=== PATIENT | female | born 1995 | race Caucasian/White ===

== ENCOUNTER 2022-07-12 09:26 | Emergency (ER) | payer OTHER, SELFPAY ==
[2022-07-12 09:37] VITALS: BP 170/119; PULSE 98; RESP 18; TEMP 37.1; O2SAT 96
--- NOTE | 2022-07-12 11:31 | ED.HA ---
HPI - Headache General Time Seen by Provider: 11:31 Date Seen: 07/12/22 Chief Complaint: Headache/Migraine Stated Complaint: Lightheaded, nausea Time Seen by Provider: 07/12/22 11:05 Source: patient, RN notes reviewed and old records reviewed Mode of arrival: ambulatory Limitations: no limitations History of Present Illness HPI Narrative: Kanchan is a very pleasant 27-year-old female previously healthy who comes to the emergency room for headache persisting for 4 days. Patient notes that she has had tremendous amount of social stressors especially with the recent her father. She does tear up when speaking about this. She states that she is overwhelmed. On TuesdayJuly 09 she states she was driving and had the sudden onset of left anabaptist pain. This was associated with vertigo and stating that everything was spinning. She states she pulled over and that actually got better and as the pain was receded she felt like she was going to vomit. Since that time she has had no vomiting but has been nauseated and has had persistent headache rated a 7/10. The nature of the headache has changed somewhat in and that today it is actually her entire head. She notes that she was quite exhausted over the last 48 hours and was but in bed quite a bit. She denies a sore throat or runny nose. She does note that the left side of her neck is been bothering lately and she has had day care director for that in the past but nothing recently. She notes no numbness or tingling on the body. She notes no visual changes since that initial vertigo on onset day 72 hours ago. She notes she did have a temp of 99.5? at home today. She notes that she feels cold but has not had any fever. She has not had any diarrhea. No recurrence of the vertigo. Patient does not have a past history of migraines nor family history. She has not had any recent head trauma. She is fully vaccinated and denies any COVID symptoms. Related Data Allergies Allergy/AdvReac Type Severity Reaction Status Date / Time No Known Drug Allergies Allergy Verified 07/12/22 09:41 Review of Systems Status of ROS: Reports: 10 or more systems reviewed and unremarkable except as noted in History and below Narrative: Denies as she is currently on her. Eyes: Denies: blurry vision ENMT: Denies: throat pain or difficulty swallowing Cardio: Denies: chest pain, palpitations, swelling of feet/ankles or shortness of breath with exertion Resp: Denies: shortness of breath or cough GI: Denies: abdominal pain, vomiting, diarrhea or difficulty swallowing : Denies: painful urination PFSH PFSH Social History Smoking Status: Never smoker Do you use any of these nicotine containing products: None Second hand tobacco smoke exposure: No How often do you have a drink containing alcohol: never How often do you have six or more drinks on one occasion: Never AUDIT-C Alcohol total score: 0 Non-prescribed substance use: denies use Exam Narrative: Exam Narrative: Kanchan is very sweet alert and oriented making good eye contact. She is frequently tearful when discussing the of her father which was just recent. EOM is full and pupils are equal round reactive to light. No significant photophobia. Head is atraumatic normocephalic. Neck is supple. No midline tenderness with palpation. Oral cavity with moist mucous membranes. Face is symmetrical. Heart with regular rate and rhythm Lungs are clear in all lung beltre abdomen soft nontender. Romberg is negative. Finger to nose negative. Able to move and be coordinated without difficulty. Hallpike maneuver negative on both left and right. Const: Vital Signs, click to edit/add: Vital Signs - 24 hr 07/12/22 09:37 07/12/22 14:44 Temperature 98.8 F Pulse Rate [Right Pulse Oximeter] 98 94 Respiratory Rate 18 18 Blood Pressure [Ri ght Upper Arm] 170/119 H 172/93 H Pulse Oximetry 96 99 Oxygen Delivery Me thod Room Air Room Air Documenting provider has reviewed patient's vital signs: yes Course Course Hospital Course: Patient has no past history of headache and this headache was sudden in its onset and was associated with some neck discomfort that has been chronic during her lifetime. We will use our migraine protocol to include Reglan 10 mg IV piggyback and Benadryl 50 mg as well as 1 L of normal saline. I did have the pleasure of speaking with , neurologist is regarding this particular onset of symptoms. I think we must include in the in the differential diagnosis vertebral artery dissection, head bleed aneurysmal leak. Because of this we will be getting MR of the head and neck with and without contrast Reevaluation(s) Reevaluation #1: Patient noted to have almost complete resolution of symptoms with our medications. He Vital Signs Vital signs: Initial Vital Signs Temperature 98.8 F 07/12/22 09:37 Temperature Source Temporal Artery Scan 07/12/22 09:37 Pulse Rate 98 07/12/22 09:37 Pulse Rhythm 07/12/22 09:37 Respiratory Rate 18 07/12/22 09:37 Blood Pressure 170/119 H 07/12/22 09:37 Blood Pressure Mean 136 07/12/22 09:37 Blood Pressure Position Sitting 07/12/22 09:37 Pulse Oximetry 96 07/12/22 09:37 Oxygen Delivery Method 07/12/22 09:37 Vital Signs Temperature 98.8 F 07/12/22 09:37 Pulse Rate 98 07/12/22 09:37 Respiratory Rate 18 07/12/22 09:37 Blood Pressure 170/119 H 07/12/22 09:37 Pulse Oximetry 96 07/12/22 09:37 Oxygen Delivery Method 07/12/22 09:37 Temperature 98.8 F 07/12/22 09:37 Pulse Rate 94 07/12/22 14:44 Respiratory Rate 18 07/12/22 14:44 Blood Pressure 172/93 H 07/12/22 14:44 Pulse Oximetry 99 07/12/22 14:44 Oxygen Delivery Method 07/12/22 14:44 MDM - Headache MDM Narrative Medical decision making narrative: 1. Migraine-patient noted to have resolution of symptoms with Reglan and Benadryl. Because she had no previous history and of the sudden onset of the symptoms we did have her undergo MR of brain and all of these studies are reassuring with no evidence of bleed, dissection. Patient had a follow-up appointment already scheduled with her primary later this week. I would like her to keep that appointment. I would like her to rest and push fluids. She herself states that she is going to ?make a change?. She states every time she is overwhelmed she ends up in the hospital. She certainly has a lot of stressors at this time. Her mother does arrive and is very loving and supportive. 2. Hypertension-Kanchan states that they are working on this with her primary. Her blood pressure did improve modestly while she was here. I do recommend she continue to follow-up for this and she has an appointment later this week. 3. Disposition-home with Mom. Return for worsening symptoms. Note for work today. Lab Data Attestation: I reviewed the patient's lab results. Labs: Lab Results 07/12/22 Range/Units 12:06 SARS-CoV-2 (PCR) Negative SARS-CoV-2 (Negative) Influenza Type A (PCR) Negative PCR FLU A (Negative) Influenza Type B (PCR) Negative PCR FLU B (Negative) Discharge Plan Discharge Clinical Impression: Migraine Patient Disposition: Home, Self-Care Condition: Improved Additional Instructions: Ibuprofen as needed. Rest and push fluids. Return to the ER as needed. Follow Up/Referrals: Provider,Not a Local [Referring] - Stand Alone Forms: [facility] [employer] Info Instructions
--- NOTE | 2022-07-12 11:37 | CRLHL7_ITS ---
For Patients: As a result of the Century Cures Act, medical imaging exams and procedure reports are released immediately into your electronic medical record. You may view this report before your referring provider. If you have questions, please contact your health care provider. INDICATION: Left-sided neck pain. Headache. TECHNIQUE: MRI brain: Multiplanar multisequence MR imaging acquired prior to and following intravenous contrast. MRA head: [id number] imaging acquired. MRA neck: [id number] and postcontrast imaging acquired. COMPARISON: None. FINDINGS: MRI brain: The ventricles and sulci are within normal limits for patient age. No mass effect or midline shift. Punctate FLAIR hyperintensity within the subcortical white matter of the left superior frontal gyrus (series 7, image 34), nonspecific though potentially related to migraine headaches or minimal chronic microvascular ischemic change. No diffusion restriction to suggest acute infarction. No intracranial hemorrhage or pathologic extra-axial fluid collection. No pathologic intracranial enhancement. The major arterial flow voids of the skullbase are preserved. The globes are symmetric. Small maxillary sinus retention cysts or polyps. Trace mastoid fluid bilaterally. MRA head: The visualized internal carotid, middle cerebral, and anterior cerebral arteries are widely patent. The vertebral, basilar, and posterior cerebral arteries are widely patent. No intracranial aneurysm or high-flow vascular malformation. MRA neck: The innominate and subclavian arteries are widely patent. The common carotid arteries are widely patent. The internal carotid arteries are widely patent. The left vertebral artery is dominant. The vertebral arteries are widely patent. IMPRESSION: 1. No acute intracranial abnormality. 2. Unremarkable MRA of the head and neck. Dictated by Jassi Neal MD @ 07/12/2022 2:38:48 PM (Electronically Signed)
[2022-07-12] MEDS: diphenhydrAMINE 50 MG/ML inj IVP (12:03)
[2022-07-12] MEDS: 0.9 % SODIUM CHLORIDE 1000 ml 1,000 ML IV (12:04)
[2022-07-12] MEDS: METOCLOPRAMIDE HCL 10 MG in 0.9 % SODIUM CHLORIDE 100 ml 100 ML 306 MG IVPB (12:10)
--- NOTE | 2022-07-12 12:20 | ED.NURSE ---
Reglan infusion stopped. Pt to MRI.
[2022-07-12 13:12] LABS: PCR FLU A Negative PCR FLU A (Negative); PCR FLU B Negative PCR FLU B (Negative)
[2022-07-12 13:13] LABS: SARS PCR* Negative SARS-CoV-2 (Negative)
--- NOTE | 2022-07-12 13:45 | ED.NURSE ---
Pt returned from MRI. Ambulatory to BR w/ steady gait.
[2022-07-12 14:44] VITALS: BP 172/93; PULSE 94; RESP 18; O2SAT 99
== END 2022-07-12 14:53 | disposition home or self-care (01) ==
PROVIDERS: Emergency Provider Family Medicine; PCP Nurse Practitioner Family
DX: G43.909 Migraine, unspecified, not intractable, without status migrainosus (principal); I10 Essential (primary) hypertension
CPT/HCPCS: 70544; 70549; 70553; 87631; 96365; 96367; 96375; 99284; A9575; J1200; J2765; J7030

== ENCOUNTER 2024-09-05 09:14 | Emergency (ER) | payer OTHER, SELFPAY ==
--- OUTSIDE RECORDS SUMMARY | 2024-09-05 09:16 | XMS_ITS | Clinical Summary ---
Author Organization [facility] Address [address] [place] [address] Care Team Providers Care Information Manager Name Role Phone Unassigned, Pcp Primary Care Provider Unavailabl e Source Comments Patient records contain information from all sites at [facility]. For routine questions regarding patient records, call [phone] during business hours, M-F 8:00 AM - 5:00 PM Central Time. Record requests for emergency care only can be directed to [phone] at any time.[facility] Allergies No known active allergies Medications * This document contains information received from the source organization and may not represent a complete record from that organization. hydrOXYzine (ATARAX) 25 mg tablet Take 2 tabs daily as needed for anxiety 1 Active loratadine (CLARITIN) 10 mg tablet Take 1 tablet by mouth daily. 7 Active lisinopriL (PRINIVIL,ZESTR IL) 5 mg tablet Take 5 mg by mouth. 1 Active hydroCHLOROthia zide (HYDRODIURIL) 25 mg tablet Take 25 mg by mouth. 1 Active fluticasone propionate (FLONASE) 50 mcg/actuation nasal spray Administer 1 spray into nostril(s). 7 Active buPROPion XL (WELLBUTRIN XL) 300 mg 24 hr tablet Take 300 mg by mouth. 1 Active venlafaxine XR (EFFEXOR-XR) 75 mg 24 hr capsule Take 75 mg by mouth. 1 Active ferrous sulfate 325 mg (65 mg iron) DR tabletIndicatio ns:Anemia Take 1 tablet (65 mg of iron total) by mouth 2 (two) times a day. 180 tablet 3 1 Active levonorgestrel- ethinyl estradiol (SEASONALE) 0.15-mg-30 mcg per tabletIndicatio ns:Abnormal Uterine And Vaginal Bleeding Unspecified Take 1 tablet by mouth daily. 91 tablet 7 1 Active naproxen (EC NAPROSYN) 375 mg EC tabletIndicatio ns:Menorrhagia, Dysmenorrhea Take 1 tablet (375 mg total) by mouth 2 (two) times a day with meals. Use as scheduled during menstruation 60 tablet 2 1 Active losartan (COZAAR) 25 mg tablet 2 Active Active Problems Problem Noted Date Diagnosed Date Menorrhagia 02/18/2021 Dysmenorrhea 02/18/2021 Bleeding Dysfunctional Uterine 02/18/2021 Overview (02/18/2021): Reviewed pelvic ultrasound results indicating normal findings with the exception of a thickened and inhomogeneous endometrium. Small endometrial polyp could not be excluded. Discussed options for further identifying in treating possible endometrial polyp. She is most interested in proceeding with the hysteroscopic dilation and curettage and possible polypectomy for further evaluation of her endometrial tissue, as well as treatment simultaneously. She is agreeable to proceeding with surgical consultation to further discuss this option and schedule if appropriate. 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 Major Depressive Disorder, Recurrent, Unspecifie d 05/10/2017 Anemia 01/15/2015 Anxiety 01/15/2015 Obesity Unspecified 12/14/2013 Hypertension 10/20/2009 Overview (11/16/2016): Hypertension Otitis Media NOS 10/20/2009 Immunizations Immunization Administration Dates Next Due 9vHPV 10/24/2015,04/02/2015,01/28/2015 DTaP (Infanrix, [employer]) 09/29/1999,,1994,1994, 1994 HepB Pediatric/Adolescent 1994,1994, 1994 Hib (PRP-OMP) (PedvaxHIB) 06/29/1995,1994, 1994,1994 IPV 09/29/1999 Influenza TIV (IM) 04/24/2007 Influenza, Seasonal, Injectable 04/24/2007 Influenza, Unspecified 04/24/2007 MCV4 (Menactra)(Discontinued) 02/06/2007 MCV4 (Menveo) 01/28/2015 MMR 09/29/1999,06/29/1995 OPV 09/29/1999,09/08/1995,1994 ,1994 Tdap 02/06/2007 RODNEY 09/08/1995 Family History Medical History Relation Name Comments Cancer Father leg Lung cancer Father (was a atomic welder) Throat cancer Father Stroke Maternal Grandfather Pacemaker catheter, device Maternal Grandmother Heart attack Mother Hysterectomy Mother polyps Ovarian cysts Mother Colon cancer Paternal Grandfather Kidney cancer Paternal Grandmother Relation Name Status Comments Father Alive Maternal Grandfather Maternal Grandmother Alive Mother Alive Paternal Grandfather Paternal Grandmother Social History Tobacco Use Types Packs/Day Years Used Date Smoking Tobacco: Never Smokeless Tobacco: Never Alcohol Use Standard Drinks/Week Comments Never 0 (1 standard drink = 0.6 oz pur e alcohol) [facility] Answer Date Recorded In the past 12 months has e electric, gas, oil, or water [employer] threatened to shut off services in your home? No 10/06/2023 PHQ-2 Answer Date Recorded PHQ-2 Score 2 03/30/2021 Exercise Vital Sign Answer Date Recorde d On average, how many days pe r week do you engage in moderate to strenuous exercise (like a brisk walk)? Patient declined On average, how many minutes do you engage in exercise at this level? Patient declined 10/06/2023 Hunger Vital Sign Answer Date Recorded Within the past 12 months, y ou worried that your food would run out before you got the money to buy more. Never true 10/06/19 24 Within the past 12 months, t he food you bought just didn't last and you didn't have money to get more. Never true 10/06/2023 PRAPARE - Transportation Answer Date Re corded In the past 12 months, has l ack of transportation kept you from medical appointments or from getting medications? No 09/25 In the past 12 months, has l ack of transportation kept you from meetings, work, or from getting things needed for daily living? No 10/06/2023 Depression Answer Date Recor ded PHQ-9 Total Score (max 27) 9 03/30 Nutrition Answer Date Recorded On average, how many serving s of fruits and vegetables do you eat per day (serving size is equal to 1 cup or approximately the size of a tennis ball)? 0-2 10/06/2023 Dental Answer Date Recorded Dental: Regular Dentist No 10/06/19 24 Employment Answer Date Recorded Employment status Employed and actively working without restrictions 10/06/2023 Housing Stability Answer Date Recorded What is your living situation today? 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 Gender Identity Not on file Sexual Orientation Not on file Occupation Industry Job Start Date Job End Date Not on file Not on file Not on file Not on file Last Filed Vital Signs Vital Sign Reading Time Taken Comments Blood Pressure 148/84 10/12/2021 3:22 PM CDT Pulse 86 03/30/2021 2:25 PM CDT Temperature 37.1 C (98.8 F) 04/22/2021 9:19 AM CDT Respiratory Rate - - Oxygen Saturation 98% 03/30/2021 2:25 PM CDT Inhaled Oxygen Concentration - - Weight 134 kg (296 lb 3 oz) 10/12/2021 3:22 PM C DT Height 165 cm (5' 4.96) 03/30/2021 2:25 PM CDT Body Mass Index 49.35 03/30/2021 2:25 PM CDT Plan of Treatment Health Maintenance Due Date Last Done Comments Depression Monitoring (PHQ-9) 1994 HIV Screening 1994 Hepatitis C Screening 1994 Office Visit for Blood Pressure Check / Re-check 1994 DTaP,Tdap,and Td Vaccines (7 - Td or Tdap) 02/06/2017 02/06/2007, 09/29/1999, 09/08/1995, Additional history exists Creatinine Level (Kidney Function Test) 10/01/2022 10/01/2021 Potassium Level 10/01/2022 10/01/2021 Sodium Level 10/01/2022 10/01/2021 Cervical/Vaginal Cancer Screening 03/18/2023 03/18/2020 (Performed elsewhere) COVID-19 Vaccine ( season) 2024 11/09/2021, 08/29/2020, 08/01/2020 Influenza Vaccine (#1) 2024 7, 04/24/2007, 04/24/2007 Depression Monitoring (PHQ-9 for quality tracking) 06/27/2024 Hepatitis B Vaccines Completed 1994, 1994, 1994 IPV Vaccines Completed 09/29/1999, 09/1999, 09/08/1995, Additional history exists HPV Vaccines Completed 10/24/2015, 12/2014, 01/28/2015 Pneumococcal vaccine (0-49 years) Aged Out No longer eligible based on patient's age to complete this topic Insurance [employer] Care Teams Information Manager Relationship Specialty Start Date End Date Unassigned, Pcp PCP - General Family Medicine 03/30/21
--- OUTSIDE RECORDS SUMMARY | 2024-09-05 09:16 | XMS_ITS | Clinical Summary ---
Author Organization [facility] Address [address] [place] [id number] Care Team Providers Care Broadcast Journalist Name Role Phone ChacortaKamleshYanna NP Primary Care Provider [phone] Allergies No known active allergies Medications ferrous sulfate 325 mg delayed release tabletIndicatio ns:Anemia, unspecified anemia type Take 1 tablet by mouth 2 times daily with meals. 0 01/16/20 15 Active naproxen (EC-Naprosyn) 375 mg tabletIndicatio ns:pain Take 375 mg by mouth 2 times daily with meals. Use as scheduled during menstruation Active gabapentin (NEURONTIN) 300 mg capsuleIndicati ons:Chronic midline thoracic back pain Take 1 Capsule (300 mg) by mouth at bedtime. 10/17/19 24 Active losartan (COZAAR) 25 mg tabletIndicatio ns:HTN (hypertension) Take 1 tab daily for 2 weeks then increase to 2 tabs daily. 90 Tablet 08/31/19 25 Active hydrOXYzine pamoate (VISTARIL) 25 mg capsuleIndicati ons:Anxiety Take 1 Capsule (25 mg) by mouth 3 times daily if needed for Anxiety. 90 Capsule 08/31/19 25 Active venlafaxine (EFFEXOR XR) 75 mg cp24 Extended-Releas e capsuleIndicati ons:Anxiety,Dep ression, recurrent Take 1 Capsule (75 mg) by mouth once daily with a meal. 90 Capsule 08/31/19 25 Active gabapentin (NEURONTIN) 100 mg capsuleIndicati ons:Anxiety disorder, unspecified type Take 1 Capsule (100 mg) by mouth two times daily. Morning and afternoon 60 Capsule 1 08/31/19 25 Active loratadine (Claritin) 10 mg tabletIndicatio ns:Seasonal allergic rhinitis due to other allergic trigger,Otalgia of both ears Take 1 Tablet (10 mg) by mouth once daily. 90 tablet. 2 03/19/20 21 025 Discontin ued(*Kathryn ent states no longer taking) losartan (COZAAR) 100 mg tabletIndicatio ns:HTN (hypertension) Take 1 Tablet (100 mg) by mouth once daily. 90 Tablet 1 11/20/19 23 025 Discontin ued(*Med complete/ Regimen complete/ Level of care change) hydroCHLOROthia zide (HCTZ) 25 mg tabletIndicatio ns:HTN (hypertension) Take 1 Tablet (25 mg) by mouth once daily. every morning 90 Tablet 3 11/20/19 23 025 Discontin ued(Reord er (E-cancel not sent)) omeprazole (PRILOSEC) 20 mg Delayed-Release capsuleIndicati ons:Chronic GERD Take 1 Capsule (20 mg) by mouth once daily before a meal. 30 Capsule 11/20/19 23 025 Discontin ued(*Med complete/ Regimen complete/ Level of care change) hydrOXYzine pamoate (VISTARIL) 50 mg capsuleIndicati ons:Current severe episode of major depressive disorder without psychotic features without prior episode (HC),Anxiety disorder, unspecified type Take 1-2 Capsules (50-100 mg) by mouth every 6 hours if needed for Anxiety. 240 Capsule 1 09/09/19 24 025 Discontin ued(*Med complete/ Regimen complete/ Level of care change) gabapentin (NEURONTIN) 100 mg capsuleIndicati ons:Anxiety disorder, unspecified type Take 1 Capsule (100 mg) by mouth two times daily. Morning and afternoon 60 Capsule 1 10/17/19 24 025 Discontin ued(Reord er (E-cancel not sent)) mirtazapine (REMERON) 30 mg tabletIndicatio ns:Current severe episode of major depressive disorder without psychotic features without prior episode (HC) Take 1 Tablet (30 mg) by mouth at bedtime. 30 Tablet 1 10/17/19 24 025 Discontin ued(*Med complete/ Regimen complete/ Level of care change) venlafaxine (Effexor XR) 75 mg cp24 Extended-Releas e capsuleIndicati ons:Current severe episode of major depressive disorder without psychotic features without prior episode (HC),Anxiety disorder, unspecified type Take 3 Capsules (225 mg) by mouth once daily in the morning. 90 Capsule 5 12/09/19 24 025 Discontin ued(*Med complete/ Regimen complete/ Level of care change) hydroCHLOROthia zide 25 mg tabletIndicatio ns:HTN (hypertension) Take 1 Tablet (25 mg) by mouth once daily. every morning 90 Tablet 3 08/31/19 25 025 Discontin ued(*Med complete/ Regimen complete/ Level of care change) Active Problems Problem Noted Date Diagnosed Date Current severe episode of ma lou depressive disorder without psychotic features without prior episode 08/31/2024 Pap smear for cervical cancer screening 07/15/19 24 Overview (07/15/2023): 06/2023 NIL/HPV negative Pap/HPV due in 5 years Eustachian tube dysfunction, left 07/01/2023 Discogenic lumbar pain 07/02/2022 Morbid obesity with BMI of 50.0-59.9, adult 02/25 Adrenal adenoma, left 02/05/2020 Depression, recurrent 05/10/2017 HTN (hypertension) 09/19/2015 Absolute anemia 01/15/2015 Anxiety 01/15/2015 Obesity 12/14/2013 Elevated blood pressure 12/14/2013 Contraception 12/14/2013 Resolved Problems Problem Noted Date Diagnosed Date Resolved Date Special screening examinatio n for other specified chlamydial diseases 02/07/2014 05/26/2015 Overview (10/17/2014): NEEDS screening-letter sent 12/2013, 09/2014 Encounters Date Type Department Care Team Description 09/04/2024 Nurse Triage [address] [address] Yanna Whatley NP Dizziness 08/30/2024 10:10 AM WARRANT SERVER Office Visit [address] [phone] Yanna Whatley NP Medication Management (Restart medication. ) 08/30/2024 Travel from Last 3 Months Immunizations Immunization Administration Dates Next Due COVID-19 vaccine (Moderna 100mcg/0.5mL) PF, MDV 08/29/2020,08/01/2020 DTaP 09/29/1999, 6,1994,07/21,1994 HIB PRP-OMP (PedvaxHIB) 06/29/1995,09/14,1994,05/04 HPV 9 (Gardasil 9) 10/24/2015,04/02/2015, 015 Hepatitis B (Peds) 1994,1994, 994 Inactivated Polio Vaccine 09/29/1999 Influenza Virus, Unspecified 04/24/2007 Influenza, IIV3 (Age >=3 years) 04/24/2007 MENINGOCOCCAL VACCINE 2 VIAL [id number] (MENVEO) 01/28/2015 MMR 09/29/1999,06/29/1995 Meningococcal Vaccine (Menactra) 02/06/2007 Oral Polio Vaccine 09/29/1999, 6,1994,05/04 Tdap 02/06/2007 Varicella Vaccine 09/08/1995 Family History Medical History Relation Name Comments Cancer Father throat Other cancer Father Sarcoma of the leg Stroke Maternal Grandfather Hypertension Maternal Grandmother Diabetes Maternal Uncle Heart Disease Mother Hypertension Mother Cancer Paternal Grandfather colon Cancer-colon Paternal Grandfather Cancer Paternal Grandmother Relation Name Status Comments Father Alive Maternal Grandfather Maternal Grandmother Maternal Uncle Mother Alive Paternal Grandfather Paternal Grandmother Social History Tobacco Use Types Packs/Day Years Used Date Smoking Tobacco: Never Passive Smoke Exposure: Yes Smokeless Tobacco: Never Tobacco Cessation:Counseling Given: Yes Comments:parents Alcohol Use Standard Drinks/Week Comments Not Currently 0 (1 standard drink = 0.6 oz pur e alcohol) ocasionally PHQ-2 Answer Date Recorded PHQ-2 TOTAL SCORE 3 12/09/2023 Social Connections Answer Date Recorded Do you often feel lonely or isolated from those around you? 0 12/09/2023 Financial Resource Strain Answer Date R ecorded Difficulty of Paying Living Expenses 3 12/09/2023 Difficulty of Paying Living Expenses Not on file 12/09/2023 Food Insecurity Answer Date Recorded Do you worry your food will run out before you are able to buy more? 1 12/09/2023 Transportation Needs Answer Date Record ed Does lack of transportation keep you from medica l appointments? 1 12/09/2023 Does lack of transportation keep you from work, meetings or getting things that you need? 1 12/09/2023 Housing Stability Answer Date Recorded What is your housing situation today? 1 12/09/2023 Interpersonal Safety Answer Date Record ed Are you being hit, kicked, p ushed or yelled at (see row info)? No 06/20/2023 Interpersonal Safety Abuse 12 - 18 Not on file 06/20/2023 Interpersonal Safety Ambulatory Vulnerability No t on file 06/20/2023 Utilities Answer Date Recorded Do you have trouble paying f or utilities (for example, heat, electricity, water, phone)? 1 12/09/2023 Comments No Sex and Gender Information Value Date Recorded Sex Assigned at Not on file Legal Sex Female 7:00 AM WARRANT SERVER Gender Identity Not on file Sexual Orientation Not on file Occupation Industry Job Start Date Job End Date Not on file Not on file Not on file Not on file Not on file Not on file Not on file Not on file Obstetrics History Para Term AB IAB SAB Ectopic Multiple Livin g Live Births 0 0 0 0 0 0 0 0 0 0 Last Filed Vital Signs Vital Sign Reading Time Taken Comments Blood Pressure 154/96 08/30/2024 10:13 AM WARRANT SERVER Pulse 64 08/30/2024 10:13 AM WARRANT SERVER Temperature 36.6 C (97.9 F) 07/01/2023 8:47 AM WARRANT SERVER Respiratory Rate 18 07/08/2023 10:2 8 AM WARRANT SERVER Oxygen Saturation 99% 09/09/2023 9:01 AM CDT Inhaled Oxygen Concentration - - Weight 145.2 kg (320 lb 3.2 oz) 025 10:13 AM WARRANT SERVER Height 165.5 cm (5' 5.16) 08/30/2024 1 0:13 AM WARRANT SERVER Body Mass Index 53.03 08/30/2024 10:13 AM WARRANT SERVER Plan of Treatment Upcoming Encounters Date Type Department Care Team (Late st Contact Info) Description 10/04/2024 8:00 AM CDT Office Visit [facility] [address] [place] [phone] Winsome Carson DO [address] [place] [address] 10/11/2024 9:30 AM CDT Office Visit [facility] [address] [place] [phone] Yanna Whatley NP [address] [facility], [place] [phone] Health Maintenance Due Date Last Done Comments HIV for age 15-65 2009 Hepatitis C screening for age 18-79 2012 Tetanus booster 02/06/2017 02/06/2007 COVID-19 vaccine series ( season) 2024 11/09/2021, 08/29/2020, 08/01/2020 Influenza Vaccine (#1) 2024 04/24/2007, 2006 Depression screening for age 12+ 12/08/2024 12/09/2023, 12/09/2023, 10/20/2023, Additional history exists BMI (ht and wt on same day) for age 18+ 08/30/2025 08/30/2024, 06/01/2024, 12/09/2023, Additional history exists Pap test for age 21-65 07/08/2028 , 07/08/2023, 03/18/2020, Additional history exists Tdap Completed 02/06/2007 Pneumococcal series for age 6-49 Aged Out No longer eligible based on patient's age to complete this topic Procedures Procedure Name Priority Date/Time Associated Diagnosis Comments HPV HIGH RISK Routine 07/08/2023 10:54 AM WARRANT SERVER Screening for malignant neoplasm of cervix from Last 3 Months or Most Recently Relevant to Health Maintenance Results * HPV HIGH RISK (07/08/2023 10:54 AM WARRANT SERVER) TYPE 16 Negative Negative 07/13/2023 1:50 PM WARRANT SERVER [facility] TYPE 18 Negative Negative 07/13/2023 1:50 PM WARRANT SERVER [facility] OTHER HIGH RISK TYPES Negative Negative 07/13/2023 1:50 PM WARRANT SERVER [facility] Other (Cervical) Non-Blood / Unknown 07/08/2023 10:54 AM WARRANT SERVER 07/11/2023 12:45 PM WARRANT SERVER Narrative [facility] - 07/13/2023 1:50 PM WARRANT SERVER HPV types 16, 18, 31, 33, 35, 39, 45, 51, 52, 56, 58, 59, 66 and 68 DNA were undetectable or below the pre-set threshold. Methodology: [employer] Ida 4800 HPV Test Yanna Whatley NP MICROBIOLOGY Final Result [facility] [address] [place] [address], from Last 3 Months or Most Recently Relevant to Health Maintenance Insurance [id number] [place] [id number] [facility] Advance Directives * Full Code (Latest Code Status on File) Date Activated Date Inactivated Comments 04/02/2021 11:09 AM 04/02/2021 4:55 PM Question Answer Comments Code Status Discussion: Not Discussed Care Teams Broadcast Journalist Relationship Specialty Start Date End Date Yanna Whatley NP [address] [place] [address] [place] [address] PCP - General Family Practice 05/03/17
[2024-09-05 09:33] VITALS: BP 135/96; PULSE 97; RESP 18; TEMP 35.7; O2SAT 98; BMI 52.4
--- NOTE | 2024-09-05 10:40 | CRLHL7_ITS ---
For Patients: As a result of the Century Cures Act, medical imaging exams and procedure reports are released immediately into your electronic medical record. You may view this report before your referring provider. If you have questions, please contact your health care provider. INDICATION: Headache COMPARISON: None TECHNIQUE: CT examination of the head was performed as axial sections without intravenous contrast. Images were obtained from the vertex of the skull through the skull base. Please note that all CT scans at this facility use dose modulation, iterative reconstruction, and/or weight-based dosing when appropriate to reduce radiation dose to as low as reasonably achievable. FINDINGS: The brain shows no sign of mass lesion, mass effect, hemorrhage, or edema. The ventricles and sulci are normal in appearance for the patient`s age. The visualized portions of the orbits are normal in appearance. The osseous structures are normal in their appearance with no sign of abnormality in the skull base or calvarium. IMPRESSION: Normal unenhanced head CT. Please note that all CT scans at this facility use dose modulation, iterative reconstruction, and/or weight-based dosing when appropriate to reduce radiation dose to as low as reasonably achievable. Dictated by Gilberto Meneses MD @ 09/05/2024 11:11:36 AM (Electronically Signed)
--- NOTE | 2024-09-05 10:41 | ED.GENADULT ---
HPI - General Adult General Chief complaint: Headache/Migraine Stated complaint: Rt body is tingling, multi-day headache Time Seen by Provider: 09/05/24 10:08 History of Present Illness HPI narrative: The patient is a 29 year white female who has a history of depression who recently started on Effexor, gabapentin for chronic back pain, and losartan For hypertension. She started the Effexor this weekend. She is concerned about the effect of these medicines together. She does have a history of migraines and has had a migraine since yesterday it has not really gone away. She does describe some occasional tingling in her right cheek and in her right arm. She reports a lot of stress. Reports a lot of anxiety and as well. No focal neurologic deficit, she has noticed no weakness, there is no been no motor deficit. There is been no trauma or injury. She is otherwise fairly healthy. She has an elevated BMI. Related Data Home Medications ?Medication ?Instructions ?Recorded ?Confirmed gabapentin 100 mg capsule 200 mg PO DAILY 09/05/24 09/05/24 losartan 25 mg tablet (Cozaar) 25 mg PO DAILY 09/05/24 09/05/24 venoflexcin 75 mg PO DAILY 09/05/24 09/05/24 Allergies Allergy/AdvReac Type Severity Reaction Status Date / Time No Known Drug Allergies Allergy Verified 09/05/24 09:40 Review of Systems Status of ROS: Reports: 6 or more systems reviewed and unremarkable except as noted in History and below [facility] Social History Smoking Status: Never smoker Do you use any of these nicotine containing products: None Second hand tobacco smoke exposure: No How often do you have a drink containing alcohol: never How often do you have six or more drinks on one occasion: Never AUDIT-C Alcohol total score: 0 Non-prescribed substance use: denies use Exam Narrative: Exam Narrative: Objective: Vital signs are within normal limits other than slightly elevated diastolic pressure Alert orient x3 No facial asymmetry Neck is supple Neurologic in upper extremities is normal for strength sensation. Her pulses regular Const: Vital Signs, click to edit/add: Vital Signs - 24 hr 09/05/24 09:33 Temperature 96.2 F L Pulse Rate [Pulse Oximeter] 97 Respiratory Rate 18 Blood Pressure [Le ft Upper Arm] 135/96 H Pulse Oximetry 98 Oxygen Delivery Me thod Room Air Course Vital Signs Vital signs: Initial Vital Signs Temperature 96.2 F L 09/05/24 09:33 Temperature Source Temporal Artery Scan 09/05/24 09:33 Pulse Rate 97 09/05/24 09:33 Respiratory Rate 18 09/05/24 09:33 Blood Pressure 135/96 H 09/05/24 09:33 Blood Pressure Mean 109 H 09/05/24 09:33 Blood Pressure Position Sitting 09/05/24 09:33 Pulse Oximetry 98 09/05/24 09:33 Oxygen Delivery Method Room Air 09/05/24 09:33 Vital Signs Temperature 96.2 F L 09/05/24 09:33 Pulse Rate 97 09/05/24 09:33 Respiratory Rate 18 09/05/24 09:33 Blood Pressure 135/96 H 09/05/24 09:33 Pulse Oximetry 98 09/05/24 09:33 Oxygen Delivery Method Room Air 09/05/24 09:33 Temperature 96.2 F L 09/05/24 09:33 Pulse Rate 97 09/05/24 09:33 Respiratory Rate 18 09/05/24 09:33 Blood Pressure 135/96 H 09/05/24 09:33 Pulse Oximetry 98 09/05/24 09:33 Oxygen Delivery Method Room Air 09/05/24 09:33 Medications Administered Medications: Discontinued Medications Generic Name Dose Route Start Last Admin Trade Name Freq PRN Reason Stop Dose Admin Diphenhydramine HCl 25 mg 09/05/24 10:40 09/05/24 10:58 Diphenhydramine 50 Mg/Ml Inj IVP 09/05/24 10:41 25 mg ONCE ONE Administration Sodium Chloride 1,000 mls @ 6,000 mls/hr 09/05/24 10:45 09/05/24 10:57 0.9 % Sodium Chloride 1000 Ml IV 09/05/24 10:54 6,000 mls/hr .Q10M ANSHU Administration Metoclopramide HCl 10 mg/ 102 mls @ 306 mls/hr 09/05/24 10:40 09/05/24 11:12 Sodium Chloride IV 09/05/24 10:41 Infused ONCE ONE Infusion Ketorolac Tromethamine 30 mg 09/05/24 10:40 09/05/24 10:57 Ketorolac 30 Mg/Ml Inj IVP 09/05/24 10:41 30 mg ONCE ONE Administration Medical Decision Making MDM Narrative Medical decision making narrative: 29-year-old white female with history of migraine headaches with a migraine, is concerned that it may be related to starting these medicines together. She recently started Effexor about 4 days ago. I think at this point I would hold the gabapentin, continue the losartan and if Effexor. Can update her regular doctor in the next few days. I think at this point will trying get her headache better as this seems like a typical migraine with exception she describes some occasional tingling in her right arm to me, no focal weakness. Sounds like it might be anxiety, but I would check a CT scan of her head for completeness. disposition pending response and CT findings. Discharge Plan Discharge Clinical Impression: Migraine, Depression Patient Disposition: Home w/ Parent or Adult Condition: Improved Additional Instructions: Light activity, fluids, hold off on the gabapentin least for a week and then can restart if we want to try that. Continue other medications. Light activity today fluids, Tylenol as needed, update regular doctor the next 2-3 days, return to ED as need Activity Level: Light activity Discharge Diet: Regular Prescriptions: No Action gabapentin 100 mg capsule 200 mg PO DAILY losartan [Cozaar] 25 mg tablet 25 mg PO DAILY venoflexcin 75 mg PO DAILY Follow Up/Referrals: Yanna Whatley CNP [Primary Care Provider] - Stand Alone Forms: [employer] Info Instructions
[2024-09-05] MEDS: 0.9 % SODIUM CHLORIDE 1000 ml 1,000 ML 6000 ML IV (10:57)
[2024-09-05] MEDS: METOCLOPRAMIDE HCL 10 MG in 0.9 % SODIUM CHLORIDE 100 ml 100 ML 306 MG IV (10:57)
[2024-09-05] MEDS: KETOROLAC 30 MG/ML inj IVP (10:57)
[2024-09-05] MEDS: diphenhydrAMINE 50 MG/ML inj 25 MG IVP (10:58)
== END 2024-09-05 12:12 | disposition home or self-care (01) ==
PROVIDERS: Emergency Provider Family Medicine; PCP Nurse Practitioner Family
DX: G43.909 Migraine, unspecified, not intractable, without status migrainosus (principal); F32.A Depression, unspecified
CPT/HCPCS: 70450; 96374; 96375; 99284; J1200; J1885; J2765; J7030

== ENCOUNTER 2024-09-15 10:17 | Emergency (ER) | payer OTHER, SELFPAY ==
--- OUTSIDE RECORDS SUMMARY | 2024-09-15 10:19 | XMS_ITS | Clinical Summary ---
Author Organization [facility] Address [address] [place] [address] Care Team Providers Care Cement Crusher Operator Name Role Phone ChacortaKamleshYanna NP Primary Care Provider Allergies No known active allergies Medications ferrous sulfate 325 mg delayed release tabletIndicatio ns:Anemia, unspecified anemia type Take 1 tablet by mouth 2 times daily with meals. 0 01/16/20 15 Active naproxen (EC-Naprosyn) 375 mg tabletIndicatio ns:pain Take 375 mg by mouth 2 times daily with meals. Use as scheduled during menstruation Active losartan (COZAAR) 25 mg tabletIndicatio ns:HTN [...] a meal. 90 Capsule 08/31/19 25 Active hydrOXYzine HCL 10 mg tabletIndicatio ns:Panic attack Take 1 tab daily if needed for anxiety 14 Tablet 09/12/19 25 Active loratadine (Claritin) 10 mg tabletIndicatio [...] complete/ Level of care change) gabapentin (NEURONTIN) 300 mg capsuleIndicati ons:Chronic midline thoracic back pain Take 1 Capsule (300 mg) by mouth at bedtime. 10/17/19 24 025 Discontin ued(*Med complete/ Regimen [...] and afternoon 60 Capsule 1 08/31/19 25 025 Discontin ued(*Med complete/ Regimen [...] Encounters Date Type Department Care Team Description 09/11/2024 8:10 AM CDT Office Visit [address] [place] [phone] Yanna Whatley NP Hospital F/U ([facility] 09/05- Numbness); Derm Problem (2 lumps ) 09/11/[address], [place] [phone] Yanna Whatley NP 09/11/2024 Travel 09/05/2024 Orders Only [facility] Scanner 1 scan: (1-Ord) [facility], CT HEAD/BRAIN WO CON, 09/05/2024 09/04/2024 Nurse Triage [address] [place] [address] Yanna Whatley NP Dizziness 08/30/2024 10:10 AM TRASH TRUCK DRIVER Office Visit [address] [place] [address] Yanna Whatley NP Medication Management (Restart medication. [...] on file Legal Sex Female 7:00 AM TRASH TRUCK DRIVER Gender Identity Not on file Sexual Orientation [...] Sign Reading Time Taken Comments Blood Pressure 164/96 09/11/2024 8:18 AM CDT Pulse 76 09/11/2024 8:09 AM CDT Temperature 36.6 C (97.9 F) 07/01/2023 8:47 AM TRASH TRUCK DRIVER Respiratory Rate 18 07/08/2023 10:28 AM TRASH TRUCK DRIVER Oxygen Saturation 99% 09/09/2023 9:01 AM CDT Inhaled Oxygen Concentration - - Weight 144.2 kg (318 lb) 09/11/2024 8:09 AM CDT Height 165.5 cm (5' 5.16) 08/30/2024 10:[address] Body Mass Index 52.66 08/30/2024 10:13 AM TRASH TRUCK DRIVER Plan of Treatment Upcoming Encounters Date Type Department Care Team (Late st Contact Info) Description 10/04/2024 8:00 AM CDT Office Visit [address] [phone] Winsome Carson DO [address] [place] [address] 10/11/2024 9:30 AM CDT Office Visit [address] [phone] Yanna Whatley NP [address] [place] [address] Health Maintenance Due Date Last Done Comments [...] Procedure Name Priority Date/Time Associated Diagnosis Comments SCAN-CT INTERPRETATION 12:00 AM CDT HPV HIGH RISK Routine 07/08/2023 10:54 AM TRASH TRUCK DRIVER Screening for malignant neoplasm of cervix from Last 3 Months or Most Recently Relevant to Health Maintenance Results * SCAN-CT INTERPRETATION (09/05/2024 12:00 AM CDT) Anatomical Region Laterality Modality Other us Scanner OTHER Final Result * HPV HIGH RISK (07/08/2023 10:54 AM TRASH TRUCK DRIVER) TYPE 16 Negative Negative 07/13/2023 1:50 PM TRASH TRUCK DRIVER [facility] TYPE 18 Negative Negative 07/13/2023 1:50 PM TRASH TRUCK DRIVER [facility] OTHER HIGH RISK TYPES Negative Negative 07/13/2023 1:50 PM TRASH TRUCK DRIVER [facility] Other (Cervical) Non-Blood / Unknown 07/08/2023 10:54 AM TRASH TRUCK DRIVER 07/11/2023 12:45 PM TRASH TRUCK DRIVER Narrative [facility] - 07/13/2023 1:50 PM TRASH TRUCK DRIVER HPV types 16, 18, 31, 33, 35, 39, 45, 51, 52, 56, 58, 59, 66 and 68 DNA were undetectable or below the pre-set threshold. Methodology: [employer] Ida 4800 HPV Test Yanna Whatley NP MICROBIOLOGY Final Result [facility] [address] [place] [address], from Last 3 Months or Most Recently Relevant to Health Maintenance Insurance [facility] [place] [id number] Advance Directives * Full Code (Latest Code Status on File) Date Activated Date Inactivated Comments 04/02/2021 11:09 AM 04/02/2021 4:55 PM Question Answer Comments Code Status Discussion: Not Discussed Care Teams Cement Crusher Operator Relationship Specialty Start Date End Date Yanna Whatley NP [address] [facility] [place] [address] PCP - General Family Practice 05/03/17
--- OUTSIDE RECORDS SUMMARY | 2024-09-15 10:19 | XMS_ITS | Clinical Summary ---
Author Organization [facility] Address [address] [place] [address] Care Team Providers Care Ferryboat Operator Cable Name Role Phone Unassigned, Pcp Primary Care Provider Unavailabl e Source Comments Patient records contain information from all sites at [facility]. For routine questions regarding patient records, call [phone] during business hours, M-F 8:00 AM - 5:00 PM Central Time. Record requests for emergency care only can be directed to [phone] at any time.[facility] Allergies No known active allergies Medications * [...] Father leg Lung cancer Father (was a welder metal fab) Throat cancer Father Stroke Maternal Grandfather Pacemaker [...] drink = 0.6 oz pur e alcohol) [facility] [employer] Answer Date Recorded In the past 12 months has e electric, gas, oil, or water [employer] threatened to shut off services in your [...] your living situation today? I have a [facility] place to live 10/06/2023 Comments No Sex and Gender Information Value Date Recorded Sex Assigned at Female 03/23/2021 12:48 PM CDT Legal Sex Female 4:25 AM MANAGER ZONE Gender Identity Not on file Sexual Orientation [...] complete this topic Insurance ALLEGIANCE Care Teams Ferryboat Operator Cable Relationship Specialty Start Date End Date Unassigned, Pcp PCP - General Family Medicine 03/30/21
[2024-09-15 10:22] VITALS: BP 166/97; PULSE 96; RESP 16; TEMP 37.1; O2SAT 96; BMI 54.1
--- NOTE | 2024-09-15 11:01 | ED_ITS ---
HPI - Abdominal Pain General Time Seen by Provider: 11:01 Date Seen: 09/15/24 Chief Complaint: Abdominal Pain Stated Complaint: abdominal pain, swelling Time Seen by Provider: 09/15/24 11:01 Source: patient and RN notes reviewed Mode of arrival: ambulatory Limitations: no limitations History of Present Illness HPI narrative: Kanchan is a very pleasant 29-year-old female with a history of migraines and anxiety who comes to the emergency room complaining of right sided abdominal swelling and discomfort. Kanchan states 1 week ago she noticed that the right side of her abdomen seemed to be swollen. She was seen on TuesdaySeptember 11 and they decided to wait and see where this discomfort went. Unfortunately it has become worse over the past week and she now is experiencing right lower quadrant pain as well. Initially mildly thought that perhaps she had some constipation and so she took a to collect tablet and did have a bowel movement but this did not seem to change the pain. She notes that she is nauseated but has not had any vomiting or fever. She denies any possibility of . It does not hurt when she urinates. She denies but is not on control. Patient does note that the pain radiates down the front of her right leg. Related Data Home Medications ?Medication ?Instructions ?Recorded ?Confirmed losartan 25 mg tablet (Cozaar) 25 mg PO DAILY 09/05/24 09/15/24 venoflexcin 75 mg PO DAILY 09/05/24 09/15/24 Allergies Allergy/AdvReac Type Severity Reaction Status Date / Time No Known Drug Allergies Allergy Verified 09/05/24 09:40 Review of Systems Status of ROS Reports: 10 or more systems reviewed and unremarkable except as noted in History and below Const Denies: fever or chills Eyes Denies: change in vision or eye discharge ENMT Denies: throat pain, neck pain or nasal congestion Cardio Denies: chest pain, swelling of feet/ankles or shortness of breath with exertion Resp Denies: shortness of breath or cough GI Reports: abdominal pain and nausea; Denies: vomiting, diarrhea or constipation Denies: painful urination, urinary frequency, urinary urgency or blood in urine Musculo Denies: neck pain Integ/Breast Denies: rash Neuro Denies: headache Psych Reports: anxiety PFSH PFSH Social History Smoking Status: Never smoker Do you use any of these nicotine containing products: None Second hand tobacco smoke exposure: No How often do you have a drink containing alcohol: never How often do you have six or more drinks on one occasion: Never AUDIT-C Alcohol total score: 0 Non-prescribed substance use: denies use Exam Narrative: Exam Narrative: Kanchan is a very pleasant well-spoken young woman in no acute distress. External ears eyes nose clear. Heart with regular rate and rhythm and lungs are clear bilaterally. Abdomen shows diffuse discomfort throughout but more pain in the right lower quadrant than elsewhere. I cannot appreciate any distinct swelling and I do not note any unusual rash at this time. Const: Vital Signs, click to edit/add: Vital Signs - 24 hr 09/15/24 10:22 09/15/24 14:07 Temperature 98.7 F Pulse Rate [Pulse Oximeter] 96 84 Respiratory Rate 16 16 Blood Pressure [Ri ght Upper Arm] 166/97 H 152/87 H Pulse Oximetry 96 98 Oxygen Delivery Me thod Room Air Room Air Documenting provider has reviewed patient's vital signs: yes Course Course ED Course: Differential diagnosis includes but is not limited to appendicitis, bowel obstruction, constipation, colitis, diverticulitis, muscular strain, ovarian pathology, ectopic . Will place IV and draw labs to include CBC, comprehensive panel, CRP. Will obtain urine urinalysis as well as hCG. Plan on abdominal CT with contrast. Reevaluation(s) Reevaluation #1: Patient noted to have negative test. She proceeded to CT and this was reassuring. Given her ongoing pain did ask for ultrasound consult. Per ultrasound report ovary looks normal but common bile duct is dilated. Consultations Consultation #1: I had the pleasure of speaking to her surgical consult Dr. Jang. Suggest MRCP with follow-up with primary for discussion of results. Vital Signs Vital signs: Initial Vital Signs Temperature 98.7 F 09/15/24 10:22 Temperature Source Temporal Artery Scan 09/15/24 10:22 Pulse Rate 96 09/15/24 10:22 Respiratory Rate 16 09/15/24 10:22 Blood Pressure 166/97 H 09/15/24 10:22 Blood Pressure Mean 120 H 09/15/24 10:22 Blood Pressure Position Sitting 09/15/24 10:22 Pulse Oximetry 96 09/15/24 10:22 Oxygen Delivery Method Room Air 09/15/24 10:22 Vital Signs Temperature 98.7 F 09/15/24 10:22 Pulse Rate 96 09/15/24 10:22 Respiratory Rate 16 09/15/24 10:22 Blood Pressure 166/97 H 09/15/24 10:22 Pulse Oximetry 96 09/15/24 10:22 Oxygen Delivery Method Room Air 09/15/24 10:22 Temperature 98.7 F 09/15/24 10:22 Pulse Rate 84 09/15/24 14:07 Respiratory Rate 16 09/15/24 14:07 Blood Pressure 152/87 H 09/15/24 14:07 Pulse Oximetry 98 09/15/24 14:07 Oxygen Delivery Method Room Air 09/15/24 14:07 MDM - Abdominal Pain MDM Narrative Medical decision making narrative: 1. Dilated common bile duct-no evidence of stones on CT or ultrasound. Well ultrasound identified common bile duct 0.8 cm, up to size 0.6 cm is normal for this age group. Therefore I have consulted with surgery and have ordered MRCP based on that conversation. No evidence of stone on ultrasound or CT. Kanchan's instructed to follow up with her primary MD after her MRCP is done. She will need to seek medical attention or return for fever, vomiting, worsening symptoms and as needed. 2. Abdominal pain-, use of laboratory values reassuring with normal white count electrolyte panel LFTs and CRP. No evidence of hematuria UTI. Or ovary appears normal with good flow. Ibuprofen or Tylenol as needed for discomfort. 3. Disposition-home at this time. Await phone call for scheduling of MRCP next week as we do not have that available over the weekend. Medical Records Attestation: I reviewed the patient's medical records. Lab Data Attestation: I reviewed the patient's lab results. Labs: Lab Results 09/15/24 09/15/24 Range/Units 11:38 12:30 WBC 9.17 (4.50-11.00) K/uL RBC 4.13 (4.00-5.20) m/uL Hgb 10.2 L (12.0-16.0) gm/dL Hct 32.1 L (33.0-51.0) % MCV 78 L (80-100) fL MCH 25 L (26-34) pg MCHC 32 (32-36) gm/dL RDW Coeff of Avelina 13.7 (11.5-15.5) % Plt Count 446 H (140-440) K/uL Neut % (Auto) 77.8 H (42.0-72.0) % Lymph % (Auto) 15.6 L (20-44) % [place] % (Auto) 5.7 (0.0-11.0) % Eos % (Auto) 0.3 (0.0-7.0) % Baso % (Auto) 0.5 (0.0-3.0) % Neut # (Auto) 7.10 H (1.7-7.0) K/uL Lymph # (Auto) 1.40 (0.90-2.90) K/uL [place] # (Auto) 0.50 (0.00-0.90) K/UL Eos # (Auto) 0.03 (0.00-0.50) K/uL Baso # (Auto) 0.05 (0.00-0.30) K/uL Abs Immat Gran (auto) 0.01 (0.00-0.30) K/uL Imm/Tot Granulo (auto) 0.1 % Sodium 138 (135-149) mmol/L Potassium 4.1 (3.6-5.1) mmol/L Chloride 101 (96-114) mmol/L Carbon Dioxide 28 (20-32) mmol/L Anion Gap 9 (7-15) mEq/L BUN 11 (5-24) mg/dL Creatinine 0.7 (0.5-1.5) mg/dL Estimated Creat Clear 101.48 Estimated GFR 119 ml/min Glucose 106 (60-115) mg/dL Lactate 0.8 (0.5-1.9) mmol/L Calcium 9.4 (8.4-10.6) mg/dL Total Bilirubin 0.4 (0.1-1.5) mg/dL AST 26 (12-35) U/L ALT 27 (4-35) U/L Alkaline Phosphatase 83 (40-150) U/L C-Reactive Protein 0.6 (0.5-1.0) mg/dL Total Protein 7.8 (6.0-8.3) g/dL Albumin 4.6 (3.3-5.0) g/dL Lipase 63 (23-300) U/L Urine Color Yellow (Yellow) Urine Appearance Clear (Clear) Urine pH 6.5 (5.0-8.5) Ur Specific [place] 1.010 (1.000-1.030) Urine Protein Negative (Negative) Urine Glucose (UA) Negative (Negative) Urine Ketones Negative (Negative) Urine Blood Negative (Negative) Urine Nitrite Negative (Negative) Urine Bilirubin Negative (Negative) Urine Urobilinogen 0.2 (0.2-1.0) Ur Leukocyte Esterase Negative (Negative) Urine RBC 0-2 (0-2) Urine WBC 0-2 (0-5) Ur Squamous Epith Cells Few (None-Few) Urine Bacteria None (None) Urine HCG, Qual Negative (Negative) Imaging Data CT scan - abdomen: Attestation: I have reviewed the pertinent imaging results. Radiologist's impression: Lower chest: Unremarkable. Liver: Normal in size and attenuation. No suspicious masses. Gallbladder and bile ducts: No stones or inflammation. No biliary dilatation. Pancreas: Unremarkable. No mass or inflammation. Spleen: Normal in size. No masses. Adrenal glands: Normal in size. No nodules. Kidneys: Normal in size. No suspicious masses, stones, or hydronephrosis. GI tract: Unremarkable. Normal in caliber. No sign of mass or inflammation. Normal appendix. Vasculature: Abdominal aorta is normal in caliber. Lymph nodes: No lymphadenopathy. Peritoneum/Abdominal Wall: Unremarkable. No sign of mass or infiltration. No free air or significant free fluid. Pelvis: Unremarkable. No pelvic masses. Bones: Unremarkable for age. IMPRESSION: Unremarkable CT of the abdomen and pelvis. No findings to explain right lower quadrant pain or swelling. Pelvic ultrasound: Attestation: I have reviewed the pertinent imaging results. Radiologist's impression: The uterus measures 7.4 x 3.9 x 5.3 cm and demonstrates normal echogenicity. No uterine masses. The endometrial stripe measures 1.1 cm in double thickness. No endometrial masses. The cervix is normal. The right ovary measures 3.5 x 1.9 x 2.5 cm. Physiologic appearance without a dominant cystic lesion or solid ovarian / adnexal mass. There is normal arterial and venous color Doppler flow and normal arterial and venous waveforms on duplex Doppler. The left ovary measures 3.5 x 1.9 x 2.5 cm. Physiologic appearance without a dominant cystic lesion or solid ovarian / adnexal mass. There is normal arterial and venous color Doppler flow and normal arterial and venous waveforms on duplex Doppler. No free fluid. IMPRESSION: Unremarkable pelvic ultrasound. US - abdomen: Attestation: I have reviewed the pertinent imaging results. Radiologist's impression: juvenal liver: Normal echogenicity. No focal liver lesions identified. Gallbladder: No stones or sludge. No wall thickening or pericholecystic fluid. Negative sonographic Patino sign. Bile ducts: The common bile duct measures 0.8 centimeters proximally and gradually tapers to 0.2 centimeters distally without evidence of obstructing stones. IMPRESSION: Unremarkable gallbladder ultrasound. Discharge Plan Discharge Clinical Impression: Common bile duct dilation, Abdominal pain Patient Disposition: Home, Self-Care Condition: Unchanged Additional Instructions: Ibuprofen or Tylenol as needed for discomfort. Avoid fatty foods right now. Fatty foods make your gallbladder contract. MRCP is a specialized tests looking at the common bile duct and surrounding structures. Your common bile duct is dilated but we do not see any stones or obstruction. The MRCP will take a closer look and insure that is the case. This will be an outpatient test in you will be called with an appointment time. You need to make an appointment with your primary physician to review these results. Return to the emergency room for fever, vomiting, worsening pain and as needed. Prescriptions: No Action losartan [Cozaar] 25 mg tablet 25 mg PO DAILY venoflexcin 75 mg PO DAILY Follow Up/Referrals: Yanna Whatley CNP [Primary Care Provider] - Stand Alone Forms: [facility] Info Instructions
--- OUTSIDE RECORDS SUMMARY | 2024-09-15 11:21 | XMS_ITS | Clinical Summary ---
Author Organization [facility] Address [address] [place] [address] Care Team Providers Care Hair Blender Name Role Phone ChacortaKamleshYanna NP Primary Care [...] Description 09/11/2024 8:10 AM CDT Office Visit [address] [place] [address] Yanna Whatley NP Hospital F/U ([facility] 09/05- Numbness); Derm Problem (2 lumps ) 09/11/[address], [place] [address] Yanna Whatley NP 09/11/2024 Travel 09/05/2024 Orders Only [facility] Scanner 1 scan: (1-Ord) [facility], CT HEAD/BRAIN WO CON, 09/05/2024 09/04/2024 Nurse Triage [address] [place] [address] Yanna Whatley NP Dizziness 08/30/2024 10:10 AM WET MACHINE TENDER Office Visit [address] [place] [address] Yanna Whatley NP Medication Management (Restart medication. [...] on file Legal Sex Female 7:00 AM WET MACHINE TENDER Gender Identity Not on file Sexual Orientation [...] 36.6 C (97.9 F) 07/01/2023 8:47 AM WET MACHINE TENDER Respiratory Rate 18 07/08/2023 10:28 AM WET MACHINE TENDER Oxygen Saturation 99% 09/09/2023 9:01 AM CDT Inhaled Oxygen Concentration - - Weight 144.2 kg (318 lb) 09/11/2024 8:09 AM CDT Height 165.5 cm (5' 5.16) 08/30/2024 10:[address] Body Mass Index 52.66 08/30/2024 10:13 AM WET MACHINE TENDER Plan of Treatment Upcoming Encounters Date Type Department Care Team (Late st Contact Info) Description 10/04/2024 8:00 AM CDT Office Visit [address] [phone] Winsome Carson DO [address] [place] [address] 10/11/2024 9:30 AM CDT Office Visit [address] [address] Yanna Whatley NP [address] [place] [address] Health Maintenance Due Date Last Done Comments [...] HPV HIGH RISK Routine 07/08/2023 10:54 AM WET MACHINE TENDER Screening for malignant neoplasm of cervix from Last 3 Months or Most Recently Relevant to Health Maintenance Results * SCAN-CT INTERPRETATION (09/05/2024 12:00 AM CDT) Anatomical Region Laterality Modality Other us Scanner OTHER Final Result * HPV HIGH RISK (07/08/2023 10:54 AM WET MACHINE TENDER) TYPE 16 Negative Negative 07/13/2023 1:50 PM WET MACHINE TENDER [facility] TYPE 18 Negative Negative 07/13/2023 1:50 PM WET MACHINE TENDER [facility] OTHER HIGH RISK TYPES Negative Negative 07/13/2023 1:50 PM WET MACHINE TENDER [facility] Other (Cervical) Non-Blood / Unknown 07/08/2023 10:54 AM WET MACHINE TENDER 07/11/2023 12:45 PM WET MACHINE TENDER Narrative [facility] - 07/13/2023 1:50 PM WET MACHINE TENDER HPV types 16, 18, 31, 33, 35, 39, 45, 51, 52, 56, 58, 59, 66 and 68 DNA were undetectable or below the pre-set threshold. Methodology: Rand Ida 4800 HPV Test Yanna Whatley NP MICROBIOLOGY Final Result [facility] [address] [place] [address], from Last 3 Months or Most Recently Relevant to Health Maintenance Insurance [facility] Member Subscriber Plan / Payer (Ef fective 2014-Present) Name:Kanchan Garcia Relation to Subscriber:Self Name:Kanchan Garcia Payer ID:[id number] (NAIC) Group [id number] Type:Not on file Address: [address] [place] [address] [place] [address] Advance Directives * Full Code (Latest Code Status on File) Date Activated Date Inactivated Comments 04/02/2021 11:09 AM 04/02/2021 4:55 PM Question Answer Comments Code Status Discussion: Not Discussed Care Teams Hair Blender Relationship Specialty Start Date End Date Yanna Whatley NP [address] [facility] [place] [address] PCP - General Family Practice 05/03/17
--- OUTSIDE RECORDS SUMMARY | 2024-09-15 11:21 | XMS_ITS | Clinical Summary ---
Author Organization [facility] Address [address] [place] [address] Care Team Providers Care Carcass Washer Name Role Phone Unassigned, Pcp Primary Care Provider Unavailabl e Source Comments Patient records contain information from all sites at [facility]. For routine questions regarding patient records, call [phone] during business hours, M-F 8:00 AM - 5:00 PM Central Time. 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
[2024-09-15 11:46] LABS: Appearance Urine Clear (Clear); Bilirubin Urine Negative (Negative); Blood Urine Negative (Negative); Color Urine Yellow (Yellow); Glucose Urine Negative (Negative); Ketones Urine Negative (Negative); Leukocyte Esterase Urine Negative (Negative); Nitrite Urine Negative (Negative); Protein Urine Negative (Negative); Urobilinogen Urine 0.2 (0.2-1.0); pH Urine 6.5 (5.0-8.5)
[2024-09-15 12:00] LABS: RBC Urine 0-2 (0-2); Squamous Epithelial Cell Urine Few (None-Few); WBC Urine 0-2 (0-5)
[2024-09-15 12:33] LABS: Lactate* 0.8 mmol/L (0.5-1.9)
[2024-09-15 12:34] LABS: Basophils Absolute Auto 0.05 K/uL (0.00-0.30); Basophils Percent Auto 0.5 % (0.0-3.0); Eosinophils Absolute Auto 0.03 K/uL (0.00-0.50); Eosinophils Percent Auto 0.3 % (0.0-7.0); Hematocrit 32.1 % (33.0-51.0); Hemoglobin* 10.2 gm/dL (12.0-16.0); Immature Granulocytes Abs Auto 0.01 K/uL (0.00-0.30); Immature Granulocytes Pct Auto 0.1 %; Lymphocytes Percent Auto 15.6 % (20-44); Mean Corpuscular HGB Conc 32 gm/dL (32-36); Mean Corpuscular Hemoglobin 25 pg (26-34); Mean Corpuscular Volume 78 fL (80-100); Monocytes Percent Auto 5.7 % (0.0-11.0); Neutrophils Percent Auto 77.8 % (42.0-72.0); Platelet Count* 446 K/uL (140-440); RDW Coefficient of Variation % 13.7 % (11.5-15.5); Red Blood Count 4.13 m/uL (4.00-5.20); White Blood Count* 9.17 K/uL (4.50-11.00)
[2024-09-15 12:35] LABS: Ur HCG Qualitative* Negative (Negative)
[2024-09-15 12:35] LABS: Slide Review Reflex No
--- NOTE | 2024-09-15 12:41 | CRLHL7_ITS ---
For Patients: As a result of the Century Cures Act, medical imaging exams and procedure reports are released immediately into your electronic medical record. You may view this report before your referring provider. If you have questions, please contact your health care provider. INDICATION: Right lower quadrant abdomen pain and swelling. TECHNIQUE: CT abdomen and pelvis without contrast. COMPARISON: None. FINDINGS: Lower chest: Unremarkable. Liver: Normal in size and attenuation. No suspicious masses. Gallbladder and bile ducts: No stones or inflammation. No biliary dilatation. Pancreas: Unremarkable. No mass or inflammation. Spleen: Normal in size. No masses. Adrenal glands: Normal in size. No nodules. Kidneys: Normal in size. No suspicious masses, stones, or hydronephrosis. GI tract: Unremarkable. Normal in caliber. No sign of mass or inflammation. Normal appendix. Vasculature: Abdominal aorta is normal in caliber. Lymph nodes: No lymphadenopathy. Peritoneum/Abdominal Wall: Unremarkable. No sign of mass or infiltration. No free air or significant free fluid. Pelvis: Unremarkable. No pelvic masses. Bones: Unremarkable for age. IMPRESSION: Unremarkable CT of the abdomen and pelvis. No findings to explain right lower quadrant pain or swelling. Please note that all CT scans at this facility use dose modulation, iterative reconstruction, and/or weight-based dosing when appropriate to reduce radiation dose to as low as reasonably achievable. Dictated by Bautista Chin MD @ 09/15/2024 2:06:27 PM (Electronically Signed)
[2024-09-15 13:04] LABS: Albumin* 4.6 g/dL (3.3-5.0); Chloride* 101 mmol/L (96-114); Potassium* 4.1 mmol/L (3.6-5.1); Sodium* 138 mmol/L (135-149)
[2024-09-15 13:06] LABS: Alanine Aminotransferase* 27 U/L (4-35); Aspartate Amino Transferase* 26 U/L (12-35); Blood Urea Nitrogen* 11 mg/dL (5-24); Creatinine* 0.7 mg/dL (0.5-1.5); Est. Creatinine Clearance* 101.48; Estimated Glomerular Filt Rate 119 ml/min
[2024-09-15 13:07] LABS: Alkaline Phosphatase* 83 U/L (40-150); Anion Gap 9 mEq/L (7-15); Bilirubin Total* 0.4 mg/dL (0.1-1.5); Calcium* 9.4 mg/dL (8.4-10.6); Carbon Dioxide* 28 mmol/L (20-32); Glucose* 106 mg/dL (60-115); Lipase* 63 U/L (23-300); Total Protein* 7.8 g/dL (6.0-8.3)
[2024-09-15 13:10] LABS: C Reactive Protein* 0.6 mg/dL (0.5-1.0)
[2024-09-15 14:07] VITALS: BP 152/87; PULSE 84; RESP 16; O2SAT 98
--- NOTE | 2024-09-15 14:09 | CRLHL7_ITS ---
For Patients: As a result of the Century Cures Act, medical imaging exams and procedure reports are released immediately into your electronic medical record. You may view this report before your referring provider. If you have questions, please contact your health care provider. INDICATION: RUQ PAIN, NORMAL CT COMPARISON: Same day CT abdomen/pelvis, limited, gallbladder, utilizing grayscale and color Doppler as needed. TECHNIQUE: Ultrasound abdomen FINDINGS: Imaged liver: Normal echogenicity. No focal liver lesions identified. Gallbladder: No stones or sludge. No wall thickening or pericholecystic fluid. Negative sonographic Patino sign. Bile ducts: The common bile duct measures 0.8 centimeters proximally and gradually tapers to 0.2 centimeters distally without evidence of obstructing stones. IMPRESSION: Unremarkable gallbladder ultrasound. Dictated by Duncan Kwan MD @ 09/15/2024 3:52:38 PM (Electronically Signed)
--- NOTE | 2024-09-15 14:09 | CRLHL7_ITS ---
For Patients: As a result of the Century Cures Act, medical imaging exams and procedure reports are released immediately into your electronic medical record. You may view this report before your referring provider. If you have questions, please contact your health care provider. INDICATION: RLQ PAIN, NORMAL CT COMPARISON: Same day CT abdomen/pelvis TECHNIQUE: Marquez-scale and color Doppler ultrasound of the uterus and ovaries from a transvaginal approach. Transvaginal ultrasound of the pelvis was performed to better visualize the genitourinary organs, such as the ovaries and/or endometrium. Color-flow and spectral Doppler imaging of both ovaries is performed. FINDINGS: The uterus measures 7.4 x 3.9 x 5.3 cm and demonstrates normal echogenicity. No uterine masses. The endometrial stripe measures 1.1 cm in double thickness. No endometrial masses. The cervix is normal. The right ovary measures 3.5 x 1.9 x 2.5 cm. Physiologic appearance without a dominant cystic lesion or solid ovarian / adnexal mass. There is normal arterial and venous color Doppler flow and normal arterial and venous waveforms on duplex Doppler. The left ovary measures 3.5 x 1.9 x 2.5 cm. Physiologic appearance without a dominant cystic lesion or solid ovarian / adnexal mass. There is normal arterial and venous color Doppler flow and normal arterial and venous waveforms on duplex Doppler. No free fluid. IMPRESSION: Unremarkable pelvic ultrasound. Dictated by Duncan Kwan MD @ 09/15/2024 3:50:28 PM (Electronically Signed)
== END 2024-09-15 15:36 | disposition home or self-care (01) ==
PROVIDERS: Emergency Provider Family Medicine; PCP Nurse Practitioner Family
DX: K83.8 Other specified diseases of biliary tract (principal); R10.9 Unspecified abdominal pain
CPT/HCPCS: 36415; 74176; 76705; 76830; 80053; 81001; 81025; 83605; 83690; 85025; 86140; 93976; 99284; 99285

== ENCOUNTER 2024-09-20 10:12 | Outpatient (CLI) | payer OTHER, SELFPAY ==
--- NOTE | 2024-09-20 10:30 | CRLHL7_ITS ---
For Patients: As a result of the Century Cures Act, medical imaging exams and procedure reports are released immediately into your electronic medical record. You may view this report before your referring provider. If you have questions, please contact your health care provider. INDICATION: Abdominal pain TECHNIQUE: 1.5 T MRI of the abdomen was performed with T2 weighted imaging; in and out of phase imaging; 3D MRCP imaging was obtained. No intravenous contrast was administered COMPARISON: Abdominal ultrasound and CT abdomen and pelvis 09/15/2024, FINDINGS: Lungs: The lung bases are clear. No pleural or pericardial effusion. Liver: Homogeneous liver parenchyma. No hepatic masses. Hepatic steatosis Biliary tree and gallbladder: No intra or extrahepatic biliary dilation. Fluid-filled gallbladder without stones. Spleen: Unremarkable Pancreas: Normal pancreatic parenchyma. No pancreatic masses. No pancreatic duct dilation. Adrenal glands: Left adrenal nodule measuring 2 cm with signal dropout on out of phase imaging suggestive of intravoxel fat. Kidneys and ureters: No renal masses or hydronephrosis. GI tract: No evidence of obstruction or inflammation. Vasculature: The IVC and aorta are caliber. Lymph nodes: No lymphadenopathy. Abdominal wall: Unremarkable Pelvis: Left adnexal cyst measuring 2.5 cm, incompletely evaluated Bones: Bone marrow signal is within normal limits. IMPRESSION: 1. Hepatic steatosis 2. Left adrenal nodule compatible with an adenoma. Dictated by Carmina Byers MD @ 09/20/2024 3:22:57 PM (Electronically Signed)
== END 2024-09-20 10:13 | disposition home or self-care (01) ==
LOC: MRI 10:14
PROVIDERS: PCP Nurse Practitioner Family; Visit Provider Family Medicine
DX: R10.9 Unspecified abdominal pain (principal); K76.0 Fatty (change of) liver, not elsewhere classified; E27.9 Disorder of adrenal gland, unspecified
CPT/HCPCS: 74181

== ENCOUNTER 2024-11-15 18:07 | Outpatient (CLI) | payer OTHER, SELFPAY | END 2024-11-15 18:08 | disposition home or self-care (01) | LOC: NFLDUCREF 18:16 | PROVIDERS: PCP Nurse Practitioner Family; Visit Provider Nurse Practitioner Family | DX: R35.0 Frequency of micturition (principal); Z87.440 Personal history of urinary (tract) infections | CPT/HCPCS: 87086 ==